=== PATIENT | female | born 1995 | race Caucasian/White ===

== ENCOUNTER 2016-10-12 23:27 | Emergency (ER) | payer OTHER ==
[~2016-10-12] VITALS: Ht 165.1 cm; Wt 117.9 kg
[~2016-10-12 23:27] MED LIST: SULF1TAB12 PO
[2016-10-12 23:32] VITALS: BP 154/90
--- NOTE | 2016-10-13 01:08 | NUR ---
PT TAKEN TO BED 8
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
--- NOTE | 2016-10-13 01:31 | NUR ---
Dr. Carreno evaluating patient at bedside.
[2016-10-13] MEDS ORDERED: NEOMYCIN/POLYMYXIN/BACITRACIN 0.9 GM/1 PKT TP ONE (01:35)
[2016-10-13] MEDS ORDERED: LIDOCAINE 1% 500 MG/50 ML VIAL INJ ONE (01:35)
--- NOTE | 2016-10-13 02:49 | NUR ---
Patient discharged with v/s stable. Written and verbal after care instructions given and explained. Patient alert, oriented and verbalized understanding of instructions. Ambulatory with steady gait. All questions addressed prior to discharge. ID band removed. Patient advised to follow up with PMD. Rx of MOTRIN 800MG AND NORCO 5/325MG given. Patient educated on indication of medication including possible reaction and side effects. Opportunity to ask questions provided and answered.
[2016-10-13 02:51] VITALS: BP 137/81
== END 2016-10-13 02:49 | disposition home or self-care (01) ==
LOC: MED 23:27
DX: S61.412A Laceration without foreign body of left hand, initial encounter (principal); F17.200 Nicotine dependence, unspecified, uncomplicated
CPT/HCPCS: 12001; 99283; J2001

== ENCOUNTER 2021-07-29 07:43 | Emergency (ER) | payer OTHER ==
[~2021-07-29] VITALS: Ht 165.1 cm; Wt 68.0 kg
[~2021-07-29 07:43] MED LIST changes: +SULF-954 PO; -SULF1TAB12 PO
[2021-07-29 07:47] VITALS: BP 146/96
--- NOTE | 2021-07-29 07:51 | NUR ---
Zoey lanier in [facility], [place] - 07/29/21 at 0753 by STEVE Patient ambulated to bed 07 with steady/even gait.
--- NOTE | 2021-07-29 07:51 | NUR ---
Patient ambulated to bed 03 with steady/even gait.
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
--- NOTE | 2021-07-29 08:06 | NUR ---
DR SILVA AT BEDSIDE FOR MSE
[2021-07-29] MEDS ORDERED: CLIN300C61 PO (08:16)
[2021-07-29] MEDS ORDERED: BACI-105 TP (08:17)
[2021-07-29 08:23] VITALS: BP 146/96
--- NOTE | 2021-07-29 08:23 | NUR ---
Patient discharged with v/s stable. Written and verbal after care instructions given and explained. Patient alert, oriented and verbalized understanding of instructions. Ambulatory with steady gait. All questions addressed prior to discharge. ID band removed. Patient advised to follow up with PMD. Rx of BACITRACIN, CLINDAMYCIN given. Patient educated on indication of medication including possible reaction and side effects. Opportunity to ask questions provided and answered.
== END 2021-07-29 08:23 | disposition home or self-care (01) ==
LOC: MED 07:43
DX: T25.211A Burn of second degree of right ankle, initial encounter (principal); F12.90 Cannabis use, unspecified, uncomplicated; Z79.899 Other long term (current) drug therapy; X08.8XXA Exposure to other specified smoke, fire and flames, initial encounter; Y93.89 Activity, other specified; Y92.89 Other specified places as the place of occurrence of the external cause; Y99.8 Other external cause status
CPT/HCPCS: 99283

== ENCOUNTER 2023-04-23 17:35 | Emergency (ER) | payer OTHER ==
[~2023-04-23] VITALS: Ht 165.1 cm; Wt 80.3 kg
[~2023-04-23 17:35] MED LIST changes: +BACI-105 TP; +CLIN300C61 PO
[2023-04-23 17:38] VITALS: BP 130/89; PULSE 79; RESP 20; TEMP 97.5; O2SAT 100
[2023-04-23 18:57] LABS: BASOPHILS % (AUTO) 0.4 % (0.0-2.0); EOSINOPHILS # (AUTO) 0.1 K/uL (0-0.4); EOSINOPHILS % (AUTO) 0.8 % (0.0-4.0); HEMATOCRIT 36.2 % (36-48); HEMOGLOBIN 12.2 g/dL (12.0-16.0); LYMPHOCYTES # (AUTO) 1.6 K/uL (2.5-16.5); LYMPHOCYTES % (AUTO) 19.3 % (20.5-51.1); MEAN CORPUSCULAR HEMOGLOBIN 29 pg (27-31); MEAN CORPUSCULAR HGB CONC 34 g/dL (33-37); MONOCYTES # (AUTO) 0.7 K/uL (0.8-1.0); MONOCYTES % (AUTO) 8.9 % (1.7-9.3); NEUTROPHILS # (AUTO) 5.8 K/uL (1.8-7.7); NEUTROPHILS % (AUTO) 70.6 % (42.2-75.2); PLATELET COUNT (AUTO) 258 K/uL (140-450); RED BLOOD CELL COUNT(AUTO) 4.16 MIL/uL (4.20-5.40); RED CELL DISTRIBUTION WIDTH 13.8 % (11.6-13.7); WHITE BLOOD COUNT (AUTO) 8.2 K/uL (4.8-10.8)
[2023-04-23 19:55] LABS: APPEARANCE,URINE CLEAR (CLEAR); BILIRUBIN,URINE NEGATIVE (NEGATIVE); BLOOD, URINE NEGATIVE (NEGATIVE); COLOR,URINE YELLOW (YELLOW); LEUKOCYTE ESTERASE ,URINE NEGATIVE (NEGATIVE); NITRITE, URINE NEGATIVE (NEGATIVE); PH,URINE 6.5 (5.0-9.0); PROTEIN,URINE NEGATIVE (NEGATIVE); UGLUCOSE NEGATIVE (NEGATIVE); UROBILINOGEN,URINE 0.2 EU/dL (0.2 - 1)
[2023-04-23 21:05] VITALS: BP 126/76; PULSE 80; RESP 20; TEMP 97.5; O2SAT 100
== END 2023-04-23 21:05 | disposition home or self-care (01) ==
LOC: MED 17:35
DX: O20.0 Threatened abortion (principal); Z3A.08 8 weeks gestation of pregnancy
CPT/HCPCS: 36415; 76817; 81003; 81025; 84702; 85025; 86900; 86901; 99284; Q0092